=== PATIENT | female | born 1945 | race Caucasian/White ===

== ENCOUNTER → 2017-12-15 | Outpatient (CLI) | payer MEDICARE, OTHER ==
[~2017-12-15] MED LIST: DIAZIDE; LEVSOD125 PO; LISI20 PO; POTCHL10ER PO; VENL75ER PO
== END | disposition home or self-care (01) ==
LOC: LAB SHORT 18:45 → LAB 18:45
DX: R30.0 Dysuria (principal)
CPT/HCPCS: 87086

== ENCOUNTER 2019-09-23 00:19 | Day surgery (SDC) | payer MEDICARE, OTHER ==
[~2019-09-23 00:19] MED LIST changes: +Dyazide 37.5-21 EACH PO; +Micro-K10 MEQ PO; +Prinivil10 MG PO; +VENL150ER PO
== END 2019-09-23 23:24 | disposition home or self-care (01) ==
LOC: WOUND 00:19
DX: H91.21 Sudden idiopathic hearing loss, right ear (principal); E03.9 Hypothyroidism, unspecified; Z79.899 Other long term (current) drug therapy
CPT/HCPCS: G0463

== ENCOUNTER 2019-09-24 11:16 | Day surgery (SDC) | payer MEDICARE, OTHER | END 2019-09-24 23:10 | disposition home or self-care (01) | LOC: HBO 11:16 | DX: H91.21 Sudden idiopathic hearing loss, right ear (principal); Z88.5 Allergy status to narcotic agent; Z79.899 Other long term (current) drug therapy | CPT/HCPCS: G0277 ==

== ENCOUNTER 2019-09-29 07:07 | Day surgery (SDC) | payer MEDICARE, OTHER | END 2019-09-29 22:55 | disposition home or self-care (01) | LOC: HBO 07:07 | DX: H91.21 Sudden idiopathic hearing loss, right ear (principal) | CPT/HCPCS: G0277 ==

== ENCOUNTER 2019-09-30 00:17 | Day surgery (SDC) | payer MEDICARE, OTHER | END 2019-09-30 22:52 | disposition home or self-care (01) | LOC: HBO 00:17 | DX: H91.21 Sudden idiopathic hearing loss, right ear (principal) | CPT/HCPCS: G0277 ==

== ENCOUNTER 2019-10-01 00:23 | Day surgery (SDC) | payer MEDICARE, OTHER | END 2019-10-01 23:19 | disposition home or self-care (01) | LOC: HBO 00:23 | DX: H91.21 Sudden idiopathic hearing loss, right ear (principal) | CPT/HCPCS: G0277 ==

== ENCOUNTER 2019-10-04 00:33 | Day surgery (SDC) | payer MEDICARE, OTHER | END 2019-10-04 23:31 | disposition home or self-care (01) | LOC: HBO 00:33 | DX: H91.21 Sudden idiopathic hearing loss, right ear (principal) | CPT/HCPCS: G0277 ==

== ENCOUNTER 2019-10-05 00:17 | Day surgery (SDC) | payer MEDICARE, OTHER | END 2019-10-05 23:32 | disposition home or self-care (01) | LOC: HBO 00:17 | DX: H91.21 Sudden idiopathic hearing loss, right ear (principal); Z79.899 Other long term (current) drug therapy | CPT/HCPCS: G0277 ==

== ENCOUNTER 2019-10-06 00:26 | Day surgery (SDC) | payer MEDICARE, OTHER | END 2019-10-06 22:59 | disposition home or self-care (01) | LOC: HBO 00:26 | DX: H91.21 Sudden idiopathic hearing loss, right ear (principal) | CPT/HCPCS: G0277 ==

== ENCOUNTER 2019-10-07 00:21 | Day surgery (SDC) | payer MEDICARE, OTHER | END 2019-10-07 23:21 | disposition home or self-care (01) | LOC: HBO 00:21 | DX: H91.21 Sudden idiopathic hearing loss, right ear (principal) | CPT/HCPCS: G0277 ==

== ENCOUNTER 2019-10-08 00:28 | Day surgery (SDC) | payer MEDICARE, OTHER | END 2019-10-08 23:26 | disposition home or self-care (01) | LOC: HBO 00:28 | DX: H91.21 Sudden idiopathic hearing loss, right ear (principal) | CPT/HCPCS: G0277 ==

== ENCOUNTER 2019-10-11 00:28 | Day surgery (SDC) | payer MEDICARE, OTHER | END 2019-10-11 23:15 | disposition home or self-care (01) | LOC: HBO 00:28 | DX: H91.21 Sudden idiopathic hearing loss, right ear (principal) | CPT/HCPCS: G0277 ==

== ENCOUNTER 2019-10-12 00:05 | Day surgery (SDC) | payer MEDICARE, OTHER | END 2019-10-12 23:07 | disposition home or self-care (01) | LOC: HBO 00:05 | DX: H91.21 Sudden idiopathic hearing loss, right ear (principal) | CPT/HCPCS: G0277 ==

== ENCOUNTER 2019-10-13 00:33 | Day surgery (SDC) | payer MEDICARE, OTHER | END 2019-10-13 23:15 | disposition home or self-care (01) | LOC: HBO 00:33 | DX: H91.21 Sudden idiopathic hearing loss, right ear (principal) | CPT/HCPCS: G0277 ==

== ENCOUNTER 2019-10-14 00:33 | Day surgery (SDC) | payer MEDICARE, OTHER | END 2019-10-14 22:40 | disposition home or self-care (01) | LOC: HBO 00:33 | DX: H91.21 Sudden idiopathic hearing loss, right ear (principal) | CPT/HCPCS: G0277 ==

== ENCOUNTER 2019-10-15 00:43 | Day surgery (SDC) | payer MEDICARE, OTHER | END 2019-10-15 23:46 | disposition home or self-care (01) | LOC: HBO 00:43 | DX: H91.21 Sudden idiopathic hearing loss, right ear (principal) | CPT/HCPCS: G0277 ==

== ENCOUNTER 2019-10-18 00:23 | Day surgery (SDC) | payer MEDICARE, OTHER | END 2019-10-18 22:43 | disposition home or self-care (01) | LOC: HBO 00:23 | DX: H91.21 Sudden idiopathic hearing loss, right ear (principal) | CPT/HCPCS: G0277 ==

== ENCOUNTER 2019-10-19 00:20 | Day surgery (SDC) | payer MEDICARE, OTHER | END 2019-10-19 22:38 | disposition home or self-care (01) | LOC: HBO 00:20 | DX: H91.21 Sudden idiopathic hearing loss, right ear (principal) | CPT/HCPCS: G0277 ==

== ENCOUNTER 2019-10-20 00:09 | Day surgery (SDC) | payer MEDICARE, OTHER | END 2019-10-20 23:02 | disposition home or self-care (01) | LOC: HBO 00:09 | DX: H91.21 Sudden idiopathic hearing loss, right ear (principal) | CPT/HCPCS: G0277 ==

== ENCOUNTER 2019-10-21 00:17 | Day surgery (SDC) | payer MEDICARE, OTHER | END 2019-10-21 23:13 | disposition home or self-care (01) | LOC: HBO 00:17 | DX: H91.21 Sudden idiopathic hearing loss, right ear (principal) | CPT/HCPCS: G0277 ==

== ENCOUNTER 2019-10-22 01:31 | Day surgery (SDC) | payer MEDICARE, OTHER | END 2019-10-22 22:45 | disposition home or self-care (01) | LOC: HBO 01:31 | DX: H91.21 Sudden idiopathic hearing loss, right ear (principal) | CPT/HCPCS: G0277 ==

== ENCOUNTER → 2019-11-04 | Outpatient (CLI) | payer MEDICARE, OTHER | END | disposition home or self-care (01) | LOC: LAB EV 16:25 → LAB SHORT 16:25 | DX: K12.2 Cellulitis and abscess of mouth (principal) | CPT/HCPCS: 87081 ==

== ENCOUNTER → 2023-01-14 | Outpatient (CLI) | payer MEDICARE, OTHER | LOC: LAB 15:11 → PLD 15:11 → LAB SHORT 15:11 | DX: L57.0 Actinic keratosis (principal) | CPT/HCPCS: 88305 ==

== ENCOUNTER 2023-10-25 17:13 | Emergency (ER) | payer MEDICARE, OTHER ==
[~2023-10-25] VITALS: Ht 154.9 cm; Wt 64.4 kg
[2023-10-25 17:17] VITALS: BP 153/102
== END 2023-10-25 20:00 | disposition home or self-care (01) ==
LOC: ER 17:13
DX: S92.355A Nondisplaced fracture of fifth metatarsal bone, left foot, initial encounter for closed fracture (principal); E03.9 Hypothyroidism, unspecified; X50.0XXA Overexertion from strenuous movement or load, initial encounter; Z79.899 Other long term (current) drug therapy; Z88.5 Allergy status to narcotic agent; Z91.040 Latex allergy status
CPT/HCPCS: 29515; 73610; 73630; 99283-25

== ENCOUNTER 2023-10-26 16:08 | Emergency (ER) | payer MEDICARE, OTHER ==
[~2023-10-26] VITALS: Ht 154.9 cm; Wt 64.4 kg
[2023-10-26 16:18] VITALS: BP 139/96
== END 2023-10-26 16:27 | disposition home or self-care (01) ==
LOC: ER 16:08
DX: S82.892D Other fracture of left lower leg, subsequent encounter for closed fracture with routine healing (principal); X58.XXXA Exposure to other specified factors, initial encounter
CPT/HCPCS: 99282

== ENCOUNTER → 2024-04-24 | Outpatient (CLI) | payer MEDICARE, OTHER | END | disposition home or self-care (01) | LOC: LAB SHORT 16:31 → LAB 16:31 | DX: M79.89 Other specified soft tissue disorders (principal) | CPT/HCPCS: 85379 ==

== ENCOUNTER 2024-07-01 18:52 | Emergency (ER) | payer MEDICARE, OTHER ==
[~2024-07-01] VITALS: Ht 152.4 cm; Wt 132.0 kg
[~2024-07-01 18:52] MED LIST changes: -Dyazide 37.5-21 EACH PO; +EUTHYROX125 MCG PO
[2024-07-01 20:03] LABS: BASOPHILS PERCENT AUTO 1 % (0-2); EOSINOPHILS ABSOLUTE AUTO 0.18 K/mm3 (0.00-0.68); EOSINOPHILS PERCENT AUTO 2 % (0-6); Hematocrit 46.9 % (33.0-51.0); Hemoglobin 15.7 g/dL (11.5-16.0); IMMATURE GRAN ABSOLUTE AUTO 0.03 K/mm3 (0.00-0.10); IMMATURE GRAN PERCENT AUTO 0 % (0-1); LYMPHOCYTES ABSOLUTE AUTO 1.37 K/mm3 (0.84-5.20); LYMPHOCYTES PERCENT AUTO 13 % (21-46); MONOCYTES ABSOLUTE AUTO 1.49 K/mm3 (0.16-1.47); MONOCYTES PERCENT AUTO 14 % (4-13); Mean Corpuscular HGB 32.6 pg (26.0-34.0); Mean Corpuscular HGB Conc 33.5 g/dL (31.5-36.5); Mean Corpuscular Volume 97 fL (80-100); Mean Platelet Volume 8.8 fL (9.1-12.4); NEUTROPHILS ABSOLUTE AUTO 7.42 K/mm3 (1.96-9.15); NEUTROPHILS PERCENT AUTO 70 % (41-73); Platelet Count 252 K/mm3 (150-400); RDW Coefficient Variation 13.3 % (11.7-14.2); RDW Standard Deviation 48.2 fL (35.1-46.3); Red Blood Cell Count 4.82 M/mm3 (3.80-5.20); White Blood Cell Count 10.59 K/mm3 (4.00-11.30)
[2024-07-01 20:27] LABS: Albumin, Blood 2.9 g/dL (3.4-5.0); Albumin/Globulin Ratio 0.9 (0.8-1.8); Bilirubin, Total 0.5 mg/dL (0.1-1.0); Bun/Creatinine Ratio 15.3 (12.0-20.0); Calcium, Blood 8.9 mg/dL (8.5-10.1); Creatinine, Blood 0.78 mg/dL (0.40-1.00); Globulin, Blood 3.4 g/dL (2.2-4.0); Potassium, Blood 4.6 mmol/L (3.5-5.5); Total Protein, Blood 6.3 g/dL (6.4-8.2)
[2024-07-02] MEDS ORDERED: Azithromycin 500 MG in NS 250 ML IV ONE (00:05)
[2024-07-02] MEDS ORDERED: NS 1,000 ML IV SCH (00:10)
[2024-07-02] MEDS ORDERED: AZIT250 PO (00:17)
[2024-07-02 02:00] VITALS: BP 144/88
[2024-07-02 03:53] LABS: Adenovirus F 40/41 Not Detected (NOT DETECT); Astrovirus Not Detected (NOT DETECT); Campylobacter Sp Not Detected (NOT DETECT); Cryptosporidium Not Detected (NOT DETECT); Cyclospora Cayetanensis Not Detected (NOT DETECT); E. Coli O157 Not Detected (NOT DETECT); Entamoeba Histolytica Not Detected (NOT DETECT); Enteroaggregative E. coli-EAEC Not Detected (NOT DETECT); Enteropathogenic E. coli-EPEC Not Detected (NOT DETECT); Enterotoxigenic E. coli-ETEC Not Detected (NOT DETECT); Giardia Lamblia Not Detected (NOT DETECT); Norovirus GI/GII Not Detected (NOT DETECT); Plesiomonas Shigelloides Not Detected (NOT DETECT); Rotavirus A Not Detected (NOT DETECT); Salmonella Sp Not Detected (NOT DETECT); Sapovirus Not Detected (NOT DETECT); Shiga Toxin-prod E. coli-STEC Not Detected (NOT DETECT); Shigella/Enteroin E. coli-EIEC Not Detected (NOT DETECT); Vibrio Cholerae Not Detected (NOT DETECT); Vibrio Sp Not Detected (NOT DETECT); Yersinia Enterocolitica Not Detected (NOT DETECT)
== END 2024-07-02 04:42 | disposition home or self-care (01) ==
LOC: ER 18:52
PROVIDERS: Emergency Medicine; Student in an Organized Health Care Education/Training Program
DX: A09 Infectious gastroenteritis and colitis, unspecified (principal); E03.9 Hypothyroidism, unspecified; Z79.899 Other long term (current) drug therapy; Z88.5 Allergy status to narcotic agent; Z91.040 Latex allergy status
CPT/HCPCS: 74177; 80053; 83605; 83690; 85025; 87507; 96365; 99284-25; J0456; J7030; J7050; Q9967

== ENCOUNTER 2024-07-06 13:56 | Inpatient (IN) | payer MEDICARE, OTHER ==
[~2024-07-06] VITALS: Ht 154.9 cm; Wt 57.3 kg
[~2024-07-06 13:56] MED LIST changes: -CARBIDOPA-LEVO1 EA15 PO; -CARBIDOPA-LEVO1 EA17 PO; -CIPR500 PO; -DYAZIDE 37.5-21 EACH PO; -METO50ER PO; -METR500 PO
[2024-07-06] MEDS ORDERED: Ondansetron HCl 2 MG / ML 2ML Vial IV ONE (14:25)
[2024-07-06] MEDS ORDERED: Morphine Sulfate 4 MG/1 ML Injection IV ONE (14:25)
[2024-07-06] MEDS ORDERED: NS 1,000 ML IV SCH (17:20)
[2024-07-06] MEDS ORDERED: FLU VACC TS2024-25(6MOS UP)/PF 45 MCG/0.5 ML SYRINGE IM ONE (17:20)
[2024-07-06] MEDS ORDERED: FentaNYL Citrate 50 MCG/ML 2 ML Injection IV PRN ×2 (17:25→21:40)
[2024-07-06] MEDS ORDERED: CefTRIAXone Sodium 1,000 MG in NS 100 ML IV SCH (18:00)
[2024-07-06] MEDS ORDERED: MetroNIDAZOLE 500MG/NS 100 ml 100 ML IV SCH (18:00)
[2024-07-06] MEDS ORDERED: CARBIDOPA-LEVO1 EA15 PO (19:43)
[2024-07-06 20:00] LABS: Adenovirus F 40/41 Not Detected (NOT DETECT); Astrovirus Not Detected (NOT DETECT); Campylobacter Sp Not Detected (NOT DETECT); Cryptosporidium Not Detected (NOT DETECT); Cyclospora Cayetanensis Not Detected (NOT DETECT); E. Coli O157 Not Detected (NOT DETECT); Entamoeba Histolytica Not Detected (NOT DETECT); Enteroaggregative E. coli-EAEC Not Detected (NOT DETECT); Enteropathogenic E. coli-EPEC Not Detected (NOT DETECT); Enterotoxigenic E. coli-ETEC Not Detected (NOT DETECT); Giardia Lamblia Not Detected (NOT DETECT); Norovirus GI/GII Not Detected (NOT DETECT); Plesiomonas Shigelloides Not Detected (NOT DETECT); Rotavirus A Not Detected (NOT DETECT); Salmonella Sp Not Detected (NOT DETECT); Sapovirus Not Detected (NOT DETECT); Shiga Toxin-prod E. coli-STEC Not Detected (NOT DETECT); Shigella/Enteroin E. coli-EIEC Not Detected (NOT DETECT); Vibrio Cholerae Not Detected (NOT DETECT); Vibrio Sp Not Detected (NOT DETECT); Yersinia Enterocolitica Not Detected (NOT DETECT)
[2024-07-06] MEDS ORDERED: Pantoprazole Sodium 40 MG Injection IV SCH (21:00)
[2024-07-06] MEDS ORDERED: Lactobacil 2-S.Thermo-Bifido 1 1 Cap PO SCH (21:00)
[2024-07-06] MEDS ORDERED: Naloxone HCl 0.4MG / ML 1ML Vial IV PRN (21:35)
[2024-07-06 21:48] VITALS: BP 136/82
[2024-07-06 23:50] VITALS: BP 127/82
[2024-07-07 04:34] VITALS: BP 126/77
[2024-07-07 04:39] LABS: BASOPHILS ABSOLUTE AUTO 0.06 K/mm3 (0.00-0.23); BASOPHILS PERCENT AUTO 1 % (0-2); EOSINOPHILS ABSOLUTE AUTO 0.12 K/mm3 (0.00-0.68); EOSINOPHILS PERCENT AUTO 1 % (0-6); Hematocrit 38.3 % (33.0-51.0); Hemoglobin 13.3 g/dL (11.5-16.0); IMMATURE GRAN ABSOLUTE AUTO 0.02 K/mm3 (0.00-0.10); IMMATURE GRAN PERCENT AUTO 0 % (0-1); LYMPHOCYTES PERCENT AUTO 12 % (21-46); MONOCYTES ABSOLUTE AUTO 1.26 K/mm3 (0.16-1.47); MONOCYTES PERCENT AUTO 13 % (4-13); Mean Corpuscular HGB 32.2 pg (26.0-34.0); Mean Corpuscular HGB Conc 34.7 g/dL (31.5-36.5); Mean Corpuscular Volume 93 fL (80-100); Mean Platelet Volume 8.8 fL (9.1-12.4); NEUTROPHILS ABSOLUTE AUTO 6.93 K/mm3 (1.96-9.15); NEUTROPHILS PERCENT AUTO 73 % (41-73); Platelet Count 274 K/mm3 (150-400); RDW Coefficient Variation 13.3 % (11.7-14.2); RDW Standard Deviation 45.2 fL (35.1-46.3); Red Blood Cell Count 4.13 M/mm3 (3.80-5.20); White Blood Cell Count 9.49 K/mm3 (4.00-11.30)
[2024-07-07 05:05] LABS: Bun/Creatinine Ratio 15.3 (12.0-20.0); C-REACTIVE PROTEIN, EXT RANGE 2.18 mg/dL (0.000-0.300); Calcium, Blood 8.5 mg/dL (8.5-10.1); Creatinine, Blood 0.72 mg/dL (0.40-1.00); Potassium, Blood 3.9 mmol/L (3.5-5.5)
[2024-07-07] MEDS ORDERED: CARBIDOPA-LEVO1 EA17 PO (05:38)
--- NOTE | 2024-07-07 06:00 | NUR ---
BLOOD TYPER SUMMARY PT ADMITTED FROM THE ER WITH COLITIS AND WAS VERY PAINFUL AND TEARFUL ON ADMIT. AT BEDSIDE VERY CONCERNED. WE WERE ABLE TO GET HER PAIN UNDER GOOD CONTROL WITH IV FENTANYL EVERY 2 HOURS. LOW GRADE TEMP ON . NO ISSUES ON TELEMETRY OVERNIGHT-NSR IN THE 90S. CONTINUEOUS PULSE OX IN USE R/T USE OF MARCOTICS. IVF RUNNING. IV FLAGYL. NO DIARRHEA OVERNIGHT. VSS. CALL LIGHT WITHIN REACH. BED ALARM ON.
[2024-07-07 07:05] VITALS: BP 127/77
[2024-07-07] MEDS ORDERED: Enoxaparin 40 MG/0.4 ML SYR SC SCH (15:00)
[2024-07-07 15:39] VITALS: BP 128/81
[2024-07-07 15:51] LABS: Albumin, Blood 2.6 g/dL (3.4-5.0); Bilirubin, Total 0.3 mg/dL (0.1-1.0); Bun/Creatinine Ratio 14.7 (12.0-20.0); Calcium, Blood 8.1 mg/dL (8.5-10.1); Creatinine, Blood 0.68 mg/dL (0.40-1.00); Globulin, Blood 2.6 g/dL (2.2-4.0); Potassium, Blood 3.2 mmol/L (3.5-5.5); Total Protein, Blood 5.2 g/dL (6.4-8.2)
--- NOTE | 2024-07-07 17:52 | NUR ---
SHIFT SUMMARY: PT A&O X4. VERY PLEASANT AND COOPERATIVE WITH CARE. DR. MATUTE IN ROOM TO CONSULT THIS SHIFT. COLONOSCOPY NOT ADVISED AT THIS TIME. PLAN FOR PT TO CONTINUE IV FLUIDS @ 100/HR AND IV ABX. PT HAS REQUIRED ONE DOSE OF IV PAIN MEDICATION SO FAR THIS SHIFT. ONE PERSON ASSIST c FWW TO BATHROOM. PT REMAINS LETHARGIC AND WEAK D/T CURRENT ILLNESS. CALL LIGHT IN REACH. BED IN LOWEST POSITION. AT BEDSIDE.
[2024-07-07] MEDS ORDERED: DYAZIDE 37.5-21 EACH PO (18:11)
[2024-07-07 20:44] VITALS: BP 123/72
[2024-07-07] MEDS ORDERED: Levodopa/Carbidopa 100 / 25 MG Tab PO SCH (21:00)
[2024-07-08 00:03] VITALS: BP 126/73
--- NOTE | 2024-07-08 02:57 | NUR ---
RN TO RN PATIENT TRANSFER. REPORT TAKEN FROM IMER MONTOYA. [facility].
--- NOTE | 2024-07-08 04:04 | NUR ---
SHIFT SUMMARY PATIENT ALERT, ORIENTED, AND ONE ASSIST FWW TO BR. DENIES CHEST PAIN, SOB, AND N/V. STATING 94% ON ROOM AIR, CONTINOUS PULSE OXIMETRY. PIV INTACT. NS INFUSING @ 100 Ml/HR. TELE MONITOR NSR 73. HAND TREMORS. SLEEPING. CALL LIGHT IN REACH. BED IN LOWEST POSITION. WILL CONTINUE TO MONITOR UNTIL DAY SHIFT NURSE ASSUMES CARE.
[2024-07-08 04:54] VITALS: BP 109/69
[2024-07-08 05:56] LABS: BASOPHILS ABSOLUTE AUTO 0.03 K/mm3 (0.00-0.23); BASOPHILS PERCENT AUTO 1 % (0-2); EOSINOPHILS ABSOLUTE AUTO 0.14 K/mm3 (0.00-0.68); EOSINOPHILS PERCENT AUTO 3 % (0-6); Hematocrit 35.1 % (33.0-51.0); Hemoglobin 11.9 g/dL (11.5-16.0); IMMATURE GRAN ABSOLUTE AUTO 0.01 K/mm3 (0.00-0.10); IMMATURE GRAN PERCENT AUTO 0 % (0-1); LYMPHOCYTES ABSOLUTE AUTO 1.01 K/mm3 (0.84-5.20); LYMPHOCYTES PERCENT AUTO 23 % (21-46); MONOCYTES ABSOLUTE AUTO 0.58 K/mm3 (0.16-1.47); MONOCYTES PERCENT AUTO 13 % (4-13); Mean Corpuscular HGB 31.6 pg (26.0-34.0); Mean Corpuscular HGB Conc 33.9 g/dL (31.5-36.5); Mean Corpuscular Volume 93 fL (80-100); Mean Platelet Volume 8.3 fL (9.1-12.4); NEUTROPHILS ABSOLUTE AUTO 2.66 K/mm3 (1.96-9.15); NEUTROPHILS PERCENT AUTO 60 % (41-73); Platelet Count 234 K/mm3 (150-400); RDW Coefficient Variation 13.1 % (11.7-14.2); RDW Standard Deviation 44.3 fL (35.1-46.3); Red Blood Cell Count 3.77 M/mm3 (3.80-5.20); White Blood Cell Count 4.43 K/mm3 (4.00-11.30)
[2024-07-08] MEDS ORDERED: Levothyroxine Sodium 0.125 MG Tab PO SCH (06:00)
[2024-07-08 07:38] VITALS: BP 100/88
[2024-07-08] MEDS ORDERED: Venlafaxine HCl 75 MG CapCR PO SCH (09:00)
[2024-07-08 11:12] VITALS: BP 127/79
[2024-07-08] MEDS ORDERED: METR500 PO (13:00)
[2024-07-08] MEDS ORDERED: METO50ER PO (13:00)
[2024-07-08] MEDS ORDERED: CIPR500 PO (13:00)
[2024-07-08] MEDS ORDERED: VENL150ER PO (13:02)
--- NOTE | 2024-07-08 14:51 | NUR ---
DISCHARGE SUMMARY PT DISCHARGED HOME - HOME HEALTH SERVICES REFUSED BY PT. IV REMOVED - CATHETER TIP INTACT AND SITE APPEARS WNL. REVIEWED DISCHARGE PACKET AND ANSWERED ALL PT AND SPOUSE QUESTIONS. NEW RX FAXED TO [facility] PER PT REQUEST. PT WHEELED DOWN TO PRIVATE CARE BY SARAH.
[2024-07-11 19:35] LABS: CALPROTECTIN,FECAL >3000 ug/g (<=49)
== END 2024-07-08 14:16 | disposition home health service (06) | DRG 392 ==
LOC: ER 13:56 → ERHOLD 17:18 → MEDS 17:18
PROVIDERS: Emergency Medicine; Family Medicine; Surgery; ADMIT Family Medicine
DX: A09 Infectious gastroenteritis and colitis, unspecified (principal); E87.1 Hypo-osmolality and hyponatremia; F33.1 Major depressive disorder, recurrent, moderate; I42.1 Obstructive hypertrophic cardiomyopathy; E86.0 Dehydration; E03.9 Hypothyroidism, unspecified; G20.A1 Parkinson's disease without dyskinesia, without mention of fluctuations; I10 Essential (primary) hypertension; R10.84 Generalized abdominal pain; Z91.040 Latex allergy status; Z88.5 Allergy status to narcotic agent; Z85.828 Personal history of other malignant neoplasm of skin; Z79.890 Hormone replacement therapy
CPT/HCPCS: 36415; 74022; 74177; 80048; 80053; 82306; 83605; 83690; 83993; 84145; 85025; 86140; 87040; 87507; 93306; 94762; 96374-59; 96375; 99285-25; A9270; J0696; J1650; J2270; J2405; J2470; J3010; J7030; Q9967

== ENCOUNTER → 2024-07-06 | Outpatient (CLI) | payer MEDICARE, OTHER ==
[~2024-07-06] MED LIST changes: +AZIT250 PO; +CARBIDOPA-LEVO1 EA15 PO; +CARBIDOPA-LEVO1 EA17 PO; +CIPR500 PO; +DYAZIDE 37.5-21 EACH PO; +METO50ER PO; +METR500 PO
[2024-07-06 12:09] LABS: BASOPHILS ABSOLUTE AUTO 0.09 K/mm3 (0.00-0.23); BASOPHILS PERCENT AUTO 1 % (0-2); EOSINOPHILS ABSOLUTE AUTO 0.06 K/mm3 (0.00-0.68); EOSINOPHILS PERCENT AUTO 0 % (0-6); Hematocrit 45.1 % (33.0-51.0); Hemoglobin 15.2 g/dL (11.5-16.0); IMMATURE GRAN ABSOLUTE AUTO 0.09 K/mm3 (0.00-0.10); IMMATURE GRAN PERCENT AUTO 1 % (0-1); LYMPHOCYTES ABSOLUTE AUTO 0.79 K/mm3 (0.84-5.20); LYMPHOCYTES PERCENT AUTO 5 % (21-46); MONOCYTES ABSOLUTE AUTO 1.49 K/mm3 (0.16-1.47); MONOCYTES PERCENT AUTO 9 % (4-13); Mean Corpuscular HGB 31.8 pg (26.0-34.0); Mean Corpuscular HGB Conc 33.7 g/dL (31.5-36.5); Mean Corpuscular Volume 94 fL (80-100); Mean Platelet Volume 8.1 fL (9.1-12.4); NEUTROPHILS ABSOLUTE AUTO 13.35 K/mm3 (1.96-9.15); NEUTROPHILS PERCENT AUTO 84 % (41-73); Platelet Count 282 K/mm3 (150-400); RDW Coefficient Variation 13.2 % (11.7-14.2); RDW Standard Deviation 45.2 fL (35.1-46.3); Red Blood Cell Count 4.78 M/mm3 (3.80-5.20); White Blood Cell Count 15.87 K/mm3 (4.00-11.30)
[2024-07-06 12:24] LABS: Albumin, Blood 3.2 g/dL (3.4-5.0); Bilirubin, Total 0.4 mg/dL (0.1-1.0); Bun/Creatinine Ratio 15.1 (12.0-20.0); Calcium, Blood 9.1 mg/dL (8.5-10.1); Creatinine, Blood 0.93 mg/dL (0.40-1.00); Globulin, Blood 3.2 g/dL (2.2-4.0); Potassium, Blood 4.1 mmol/L (3.5-5.5); Total Protein, Blood 6.4 g/dL (6.4-8.2)
== END ==
LOC: LAB 12:05 → LAB SHORT 12:05
PROVIDERS: Physician Assistant
DX: E86.0 Dehydration (principal)
CPT/HCPCS: 80053; 83690; 85025

== ENCOUNTER → 2024-07-14 | Outpatient (CLI) | payer MEDICARE, OTHER ==
[~2024-07-14] MED LIST changes: +CARBIDOPA-LEVO1 EA15 PO; +CARBIDOPA-LEVO1 EA17 PO; +CIPR500 PO; +DYAZIDE 37.5-21 EACH PO; +METO50ER PO; +METR500 PO
[2024-07-19 05:31] LABS: CALPROTECTIN,FECAL 869 ug/g (<=49)
== END ==
LOC: LAB 17:01 → LAB SHORT 17:01
PROVIDERS: Internal Medicine
DX: K52.9 Noninfective gastroenteritis and colitis, unspecified (principal)
CPT/HCPCS: 83993